=== PATIENT | female | born 1975 | race Caucasian/White ===

== ENCOUNTER 2021-10-18 06:09 | Emergency (ER) | payer OTHER ==
[2021-10-18 08:21] LABS: BASOPHIL 0.1 % (0-2); EOSINOPHIL 0.7 % (0-5); HCT 44.9 % (37.0-47.0); HGB 14.6 g/dl (12.5-16.0); LYMPHOCYTE 2.9 % (15-48); MCH 29.6 pg (25.0-31.0); MCHC 32.5 g/dL (32.0-36.0); MCV 90.9 fL (78.0-100.0); MONOCYTE 5.1 % (0-12); MPV 9.2 fL (6.0-9.5); NRBC 0; PLT 295 K/uL (150-400); RBC 4.94 M/uL (4.20-5.40); RDW 13.6 % (11.5-14.0); WBC 15.4 K/uL (4.0-10.5)
[2021-10-18 08:22] LABS: NEUTROPHIL 90.9 % (41-80)
[2021-10-18 08:46] LABS: BUN/CREAT RATIO (CALC) 15.9 RATIO; CREATININE 0.63 mg/dL (0.51-0.95); POTASSIUM 4.1 mmol/L (3.5-5.1)
[2021-10-18 09:00] LABS: CORONAVIRUS 2019 SARS-COV-2 NEGATIVE (NEGATIVE); INFLUENZA A NAA NEGATIVE (NEGATIVE)
[2021-10-18] MEDS ORDERED: ONDANSETRON ODT4 MG PO (14:06)
[2021-10-18] MEDS ORDERED: ACIPHEX20 MG PO (14:06)
[2021-10-18] MEDS ORDERED: CARAFATE S500 MG/TSP PO (14:06)
== END 2021-10-18 14:48 | disposition home or self-care (01) ==
LOC: FER 06:09
PROVIDERS: Internal Medicine
DX: R07.89 Other chest pain (principal); R11.2 Nausea with vomiting, unspecified; R19.7 Diarrhea, unspecified; Z20.822 Contact with and (suspected) exposure to COVID-19
CPT/HCPCS: 36415; 36600; 71045; 71260; 80048; 82803; 83880; 84145; 84484; 85025; 85379; 93005; C9113; J1170; J2405; J7030; Q9967; U0002